=== PATIENT | female | born 2000 | race Caucasian/White ===

== ENCOUNTER 2023-04-24 08:48 | Day surgery (SDC) | payer SELFPAY, OTHER ==
[2023-04-24 09:25] LABS: Internal QC Validated? YES +Cl - CLEAR BKGD; Pregnancy, Urine Negative Negative
[2023-04-24 09:28] VITALS: BP 122/74; PULSE 75; RESP 16; TEMP 36.3; O2SAT 100; BMI 27.1
[2023-04-24] MEDS: Lactated Ringers 1,000 ML 15 ML IV (09:31)
--- NOTE | 2023-04-24 10:04 | PCM.HP.BLA ---
History and Physical Date of Admission: 04/24/23 Intake Vital Signs 03/29/2308:14 Weight: 139 lb BP 113/75 Blood Pressure Location Rt brachial Position Sitting Respiration 17 Pulse 68 Pulse Source Monitor Pulse Oximetry (%) 100 Oxygen Delivery Method room air Intake Visit Reasons: SWALLOWING ISSUES/EGD [place] Chief Complaint: swallowing issues/egd [place] Is patient in pain?: No Allergies No Known Allergies Allergy (Unverified 03/29/23 08:17) Medications NK 03/29/23 [History Confirmed 03/29/23] PFSH Family History (Updated 03/29/23 @ 08:14 by Magui Begum) Mother Hypertension Social History (Updated 03/29/23 @ 08:14 by Magui Begum) Smoking Status: Never smoker alcohol intake: never HPI HPI HPI: Patient is a 22-year-old female here with dysphagia. The patient reports she has been having dysphagia throughout her life. She recently went to [place] and had EGD performed but they did not perform dilation. 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 ROS General General: No weight change, appetite, fatigue, colon cancer, breast cancer or weakness HEENT HEENT: Yes difficulty swallowing; No eye injury, eye surgery, swollen glands or hoarseness Endo Endocrine: No thyroid disease, diabetes mellitus, thyroid cancer, Hair loss, heat intolerance or cold intolerance Skin Skin: No rash or changing moles Musc Musculoskeletal: No back problems, arthritis, rheumatoid arthritis, gout or joint pain Cardio Cardiovascular: No murmur, pacemaker, heart disease, atrial fibrillation, high blood pressure, heart attack, heart stent, palpitations, shortness of breat with exertion or chest pain Psych Psychiatric: No depression, anxiety or hearing voices Resp Respiratory: No shortness of breath, No sleep apnea, No cough, No COPD, No asthma, No emphysema and No wheezing Gastro Gastrointestinal: No abdominal pain, No nausea or vomiting, No diarrhea, No constipation, No blood in stool, No acid reflux, No hemorrhoids, No ulcers, No gallbladder problem and No black,tarry stools John Hematologic: No blood thinners, No blood disorders, No bleeding, No anemia and No blood clots Neuro Neurologic: No system reviewed and no additional complaints, except as documented, No as per HPI, No abnormal gait, No abnormal hearing, No abnormal movements, No abnormal speech, No behavioral changes, No burning sensations, No confusion, No convulsions, No disequilibrium, No dizziness, No localized weakness, No frequent falls, No headache(s), No lack of coordination, No loss of vision, No memory loss, No numbness, No other visual disturbances, No radicular pain, No restless legs, No sensory deficit, No syncope, No tingling, No tremor(s), No weakness and No other Exam Const General: cooperative Orientation: alert and oriented x3 HENMT Head: normal to inspection Neck Neck: normal visual inspection and full ROM Chest Chest palpation & inspection: normal inspection of the chest Resp Effort & Inspection: normal respiratory effort Auscultation: clear to auscultation bilaterally Cardio Rate: regular rate Rhythm: regular rhythm GI Inspection: non-distended Palpation: soft and nontender Skin General: no rashes or lesions noted Neuro General: patient alert and patient oriented x3 Extrem General: full ROM Psych Appearance: grossly normal Mental Status: mental status grossly normal Assessment and Plan Assessment and Plan (1) Difficulty swallowing: Status: Acute Qualifiers: Dysphagia type: esophageal phase Qualified Code(s): R13.19 - Other dysphagia Plan: The patient had an EGD in [place] and she was found to have a stenosis at 32 cm. Unsure as to if this is from her surgery versus from reflux. I discussed EGD with possible dilation. I discussed that I would only be able to dilate so much if this was from her stenosis as a baby. I discussed the increased risk of bleeding and perforation with dilation. I explained endoscopy in detail to the patient. I explained the risks including but not limited to stroke or heart attack with anesthesia, perforation of the GI tract, bleeding, infection. I explained that any of these could necessitate further emergency surgery. The patient understands and all questions were answered sufficiently. The patient wishes to proceed with procedure. Magno Story MD Pager: [facility] [address] [place] [address], [address] [place] [address] Office: I have examined the patient and the H&P has been reviewed. There are no clinical changes since date of exam.
[2023-04-24 10:26] VITALS: BP 103/63; BP 122/74; PULSE 73; RESP 16; TEMP 36.1; O2SAT 97
--- NOTE | 2023-04-24 10:28 | OP.EGD_ITS ---
Patient Name: Perla Arceo Procedure Date: 04/24/2023 10:05 AM Date of : 2000 Age: 22 Procedure: Upper GI endoscopy Indications: Dysphagia Providers: Magno Story MD Medicines: Monitored Anesthesia Care Complications: No immediate complications. Estimated blood loss: Minimal. Procedure: Pre-Anesthesia Assessment: - Prior to the procedure, a History and Physical was performed, and patient medications and allergies were reviewed. The patient's tolerance of previous anesthesia was also reviewed. The risks and benefits of the procedure and the sedation options and risks were discussed with the patient. All questions were answered, and informed consent was obtained. Prior Anticoagulants: The patient has taken no anticoagulant or antiplatelet agents. After reviewing the risks and benefits, the patient was deemed in satisfactory condition to undergo the procedure. After obtaining informed consent, the endoscope was passed under direct vision. Throughout the procedure, the patient's blood pressure, pulse, and oxygen saturations were monitored continuously. The Endoscope was introduced through the mouth, and advanced to the fourth part of duodenum. The upper GI endoscopy was accomplished without difficulty. The patient tolerated the procedure well. Scope In: 10:13:59 AM Scope Out: 10:21:55 AM Total Procedure Duration Time 0 hours 7 minutes 56 seconds Findings: One benign-appearing, intrinsic mild stenosis was found in the lower third of the esophagus. This stenosis measured less than one cm (in length). The stenosis was traversed. A TTS dilator was passed through the scope. Dilation with a 15-16.5-18 mm balloon dilator was performed to 18 mm. The dilation site was examined and showed complete resolution of luminal narrowing. Estimated blood loss was minimal. The stomach was normal. The examined duodenum was normal. Impression: - Benign-appearing esophageal stenosis. Dilated. - Normal stomach. - Normal examined duodenum. - No specimens collected. Recommendation: - Discharge patient to home. - Soft diet for 2 days. - Continue present medications. Procedure Code(s): --- Professional --- 69886, Esophagogastroduodenoscopy, flexible, transoral; with transendoscopic balloon dilation of esophagus (less than 30 mm diameter) Diagnosis Code(s): --- Professional --- K22.2, Esophageal obstruction R13.10, Dysphagia, unspecified CPT copyright 2021 [employer]. All rights reserved. The codes documented in this report are preliminary and upon ski edge painter review may be revised to meet current compliance requirements. Magno Story MD 04/24/2023 10:27:58 AM This report has been signed electronically. Number of Addenda: 0 Note Initiated On: 04/24/2023 10:05 AM
[2023-04-24 10:30] VITALS: BP 122/74; BP 95/53; PULSE 70; RESP 16; O2SAT 97
[2023-04-24 10:35] VITALS: BP 102/68; BP 122/74; PULSE 69; RESP 16; O2SAT 97
[2023-04-24 10:45] VITALS: BP 108/66; BP 122/74; PULSE 75; RESP 16; TEMP 36.1; O2SAT 100
[2023-04-24 11:06] VITALS: BP 122/74
== END 2023-04-24 11:19 | disposition home or self-care (01) ==
LOC: EN 08:59 → AC 09:00
PROVIDERS: Anesthesiology; Visit Provider Surgery
PROC: 0DJ08ZZ Inspection of Upper Intestinal Tract, Via Natural or Artificial Opening Endoscopic (ICD-10-PCS; CPT 43235; principal; 2023-04-24 10:25)
DX: K22.2 Esophageal obstruction (principal); R13.10 Dysphagia, unspecified
CPT/HCPCS: 43249; 81025; J7120; J2405